=== PATIENT | female | born 1965 | race Caucasian/White ===

== ENCOUNTER 2017-09-12 07:15 | Day surgery (SDC) | payer BC ==
[2017-09-12 07:57] VITALS: BMI 16.4
[2017-09-12] MEDS ORDERED: PROPOFOL 20 ML ONE (08:02)
[2017-09-12] MEDS ORDERED: SUCCINYLCHOLINE CHLORIDE 200 MG/10 ML VIAL ONE (08:04)
[2017-09-12 08:52] VITALS: BP 104/79
[2017-09-12 09:36] VITALS: PULSE 50; TEMP 100
--- NOTE | 2017-09-13 17:11 | PATH ---
Surgical Pathology Report Patient Name: [facility]. Rec. #: [id number] /Age/Gender: 1965 (Age: 52) / F Account: [id number] Location: U-ENDOSCOPY Taken: 09/12/2017 Received: 09/12/2017 Reported: 09/13/2017 Physicians: Arjun Wu M.D. Specimen(s) Received A: BX DUODENAL BULB B: BX ANTRUM AND BODY C: BX SCHATZKI'S RING D: BX MID ESOPHAGUS Clinical History Preoperative diagnosis: Dysphagia, weight loss Postoperative diagnosis: Schatzki's ring, gastritis Final Diagnosis A. DUODENUM, SECOND PORTION AND BULB, BIOPSY: DUODENAL MUCOSA WITH FOCAL MILD ACUTE AND CHRONIC INFLAMMATION. B. STOMACH, ANTRUM AND BODY, BIOPSY: GASTRIC ANTRAL AND BODY MUCOSA WITH MILD CHRONIC GASTRITIS. IMMUNOHISTOCHEMICAL STAIN FOR H. PYLORI IS NEGATIVE. C. ESOPHAGUS, SCHATZI'S RING, BIOPSY: SQUAMOUS MUCOSA WITH MODERATE TO SEVERE BASAL CELL HYPERPLASIA, INCREASE IN INTRAEPITHELIAL EOSINOPHILS (~10/HPF), AND REACTIVE CHANGES. FOCAL COLUMNAR MUCOSA WITH MILD CHRONIC INFLAMMATION. NO INTESTINAL METAPLASIA OR DYSPLASIA IDENTIFIED. SEE COMMENT. D. MID ESOPHAGUS, BIOPSY: SQUAMOUS MUCOSA WITH MILD TO MODERATE BASAL CELL HYPERPLASIA AND RARE INTRAEPITHELIAL EOSINOPHILS. SEE COMMENT. Comment: Findings are non-specific. Although an eosinophilic esophagitis cannot be definitively excluded, these findings favor reflux-associated changes. Suggest clinical correlation. Electronically Signed Sandi Rodriguez M.D. Gross Description A. Received in formalin, labeled "biopsy second portion of duodenum and duodenal bulb" are 6 giles, irregular portions of soft tissue ranging from 0.2-0.4 cm. in greatest dimension. The specimens are submitted in toto in one cassette. B. Received in formalin, labeled "biopsy antrum and body" are 4 giles, irregular portions of soft tissue ranging from 0.1-0.4 cm. in greatest dimension. The specimens are submitted in toto in one cassette. C. Received in formalin, labeled "biopsy Schatzki's ring" are 5 giles, irregular portions of soft tissue ranging from 0.1-0.4 cm. in greatest dimension. The specimens are submitted in toto in one cassette. D. Received in formalin, labeled "biopsy midesophagus" are 2 giles, irregular portions of soft tissue measuring 0.2 and 0.3 cm. in greatest dimension. The specimens are submitted in toto in one cassette. 09/12/2017 [facility]09/12/2017
== END 2017-09-12 09:20 | disposition home or self-care (01) ==
LOC: JASU-ENDO 07:15
PROVIDERS: ATTEND Internal Medicine Gastroenterology
PROC: 0DB68ZX Excision of Stomach, Via Natural or Artificial Opening Endoscopic, Diagnostic (ICD-10-PCS; 2017-09-12)
PROC: 0DB28ZX Excision of Middle Esophagus, Via Natural or Artificial Opening Endoscopic, Diagnostic (ICD-10-PCS; 2017-09-12)
PROC: 0DB38ZX Excision of Lower Esophagus, Via Natural or Artificial Opening Endoscopic, Diagnostic (ICD-10-PCS; 2017-09-12)
PROC: 0DB48ZX Excision of Esophagogastric Junction, Via Natural or Artificial Opening Endoscopic, Diagnostic (ICD-10-PCS; 2017-09-12)
PROC: 0DB98ZX Excision of Duodenum, Via Natural or Artificial Opening Endoscopic, Diagnostic (ICD-10-PCS; principal; 2017-09-12 08:00)
DX: K21.9 Gastro-esophageal reflux disease without esophagitis (principal); K44.9 Diaphragmatic hernia without obstruction or gangrene; K25.9 Gastric ulcer, unspecified as acute or chronic, without hemorrhage or perforation; K22.2 Esophageal obstruction
CPT/HCPCS: 88305-TC; 88342-TC